=== PATIENT | female | born 1945 | race Caucasian/White ===

== ENCOUNTER 2020-04-30 10:50 | Outpatient (CLI) | payer MEDICARE ==
--- NOTE | 2020-04-30 11:34 | BD ---
DEXA BONE DENSITY SCAN: DATE: 04/30/2020. HISTORY: Postmenopausal female undergoing screening for osteoporosis. FINDINGS: Lumbar Spine: BMD (g/cm2) L1 0.663 T-Score: -3.0 L2 0.712 T-Score: -2.9 L3 0.760 T-Score: -2.9 L4 0.757 T-Score: -2.8 L1-L4 0.7.25 T-Score: -2.9 Femoral Neck: 0.588 T-Score: -2.3 Total Femur: 0.743 T-Score: -1.6 FRAX-WHO fracture risk assessment tool is not reported as some T-scores are at or below -2.5. IMPRESSION: Diffuse osteoporosis of the lumbar spine correlating with a high risk for fracture. Femoral neck and proximal femoral osteopenia noted as well. Transcribed Date/Time: 04/30/2020 11:53 AM
--- NOTE | 2020-05-05 13:26 | MMO ---
Bilateral MAMMO Bilat Screen [facility]. CLINICAL HISTORY: Patient is 75 years old and is seen for screening. The patient has no family history of breast cancer. The patient has no personal history of cancer. VIEWS: The views performed were: bilateral craniocaudal with tomosynthesis and bilateral mediolateral oblique with tomosynthesis. FILMS COMPARED: The present examination has been compared to prior imaging studies performed at [facility] on 06/20/2018, and at [facility] on 02/24/2014 and 12/03/2015. This study has been interpreted with the assistance of computer-aided detection. MAMMOGRAM FINDINGS: There are scattered fibroglandular densities. Benign calcifications are noted bilaterally. There are no suspicious masses, suspicious calcifications, or new areas of architectural distortion. IMPRESSION: THERE IS NO MAMMOGRAPHIC EVIDENCE OF MALIGNANCY. A ROUTINE FOLLOW-UP MAMMOGRAM IN 1 YEAR IS RECOMMENDED. THE RESULTS OF THIS EXAM WERE SENT TO THE PATIENT. ACR BI-RADS Category 2 - Benign finding MAMMOGRAPHY NOTE: 1. A negative mammogram report should not delay a biopsy if a dominant of clinically suspicious mass is present. 2. Approximately 10% to 15% of breast cancers are not detected by mammography. 3. Adenosis and dense breasts may obscure an underlying neoplasm. Reported by: ROLAND LOPEZ MD Electonically Signed: [id number]
== END 2020-04-30 10:51 | disposition home or self-care (01) ==
LOC: BICMAMMO 10:50
DX: Z12.31 Encounter for screening mammogram for malignant neoplasm of breast (principal); Z13.820 Encounter for screening for osteoporosis; M81.0 Age-related osteoporosis without current pathological fracture; M85.859 Other specified disorders of bone density and structure, unspecified thigh
CPT/HCPCS: 77063; 77067; 77080